=== PATIENT | female | born 1990 | race African-American/Black ===

== ENCOUNTER 2017-05-01 08:17 | Emergency (ER) | payer OTHER ==
[2017-05-01] MEDS ORDERED: Ondansetron HCl/PF 4 MG/2 ML Vial ONE (08:46)
[2017-05-01] MEDS ORDERED: Metoprolol Tartrate 5 MG/5 ML VIAL ONE (08:47)
[2017-05-01 09:12] LABS: Anion Gap 14 mmol/L (10-20); BUN (Urea Nitrogen) 7 mg/dL (7.0-18.7); CKMB 0.7 ng/mL (0-6.6); Calc. Creatinine Clearance 0 mL/min (70-130); Calcium 8.9 mg/dL (7.8-10.44); Carbon Dioxide 21 mmol/L (22-29); Chloride 110 mmol/L (98-107); Estimated GFR-MDRD Greater than 90; Glucose 96 mg/dL (70-105); Potassium 3.7 mmol/L (3.5-5.1); Sodium 141 mmol/L (136-145); Troponin I Less than 0.010 ng/mL (< 0.028)
[2017-05-01 09:15] LABS: Hemoglobin 13.7 g/dL (12.0-16.0); Lymphocytes 44 % (21-51); MDiff Complete? YES; Mean Corpuscular HGB CONC 31.1 g/dL (32.0-36.0); Mean Corpuscular Hemoglobin 27.1 pg (27.0-31.0); Mean Corpuscular Volume 87.2 fl (81.0-99.0); Mean Platelet Volume 7.4 fL (7.4-10.4); Monocytes 3 % (0-10); Neutrophil 52 % (42-75); PLT Morphology Comment Appears Adequate; Platelet Count 324 thou/uL (130-400); RBC Distribution Width 11.5 % (11.5-14.5); Reactive Lymphocytes 1 % (0-10); Red Blood Cell (RBC) Count 5.03 mill/uL (4.20-5.40); White Blood Cell (WBC) Count 4.6 thou/uL (4.8-10.8)
--- NOTE | 2017-05-01 09:30 | RAD ---
ONE VIEW CHEST: Comparison: 09-04-16 History: Chest pain. FINDINGS: AP upright chest demonstrates a normal cardiac silhouette. Pulmonary vessels and hilum are normal. N o masses or consolidation. No pneumothorax or osseous abnormality. IMPRESSION: No acute cardiopulmonary process. POS: [facility]
== END 2017-05-01 09:48 | disposition home or self-care (01) ==
LOC: NAV ERS 08:17
DX: I10 Essential (primary) hypertension (principal)
CPT/HCPCS: 71010; 80048; 82553; 84484; 85025; 93005; 96374; J2270; J2405